=== PATIENT | male | born 1990 ===

== ENCOUNTER 2021-05-16 02:36 | Emergency (ER) | payer SELFPAY ==
[2021-05-16 03:21] LABS: HEMOGLOBIN 15.2 gm/dl (14.0-17.5); RED BLOOD COUNT 5.4 M/UL (4.20-5.50); WHITE BLOOD COUNT 11.8 K/UL (4.5-11.0)
[2021-05-16 03:38] LABS: BUN/CREATININE RATIO 12 (0-10)
[2021-05-16] MEDS ORDERED: ZOFRAN ODT 4 MG4 MG GT (04:57)
[2021-05-16] MEDS ORDERED: PERCOCET 5/325 T1 EA PO (04:57)
== END 2021-05-16 06:19 | disposition home or self-care (01) ==
LOC: ER1 02:36
PROVIDERS: Family Medicine
DX: N13.2 Hydronephrosis with renal and ureteral calculous obstruction (principal)
CPT/HCPCS: 80053; 81001; 83690; 85025; 96374; 96375; 99284; J1885; J2270; J2405